=== PATIENT | male | born 1955 | race Two or more races ===

== ENCOUNTER → 2019-05-04 | Outpatient (CLI) | payer MEDICARE | END | disposition home or self-care (01) | LOC: RAD 17:10 | PROVIDERS: ATTEND Physician Assistant | DX: K57.32 Diverticulitis of large intestine without perforation or abscess without bleeding (principal); N40.0 Benign prostatic hyperplasia without lower urinary tract symptoms; R31.9 Hematuria, unspecified; M51.35 Other intervertebral disc degeneration, thoracolumbar region; M46.86 Other specified inflammatory spondylopathies, lumbar region; K40.90 Unilateral inguinal hernia, without obstruction or gangrene, not specified as recurrent; K42.9 Umbilical hernia without obstruction or gangrene; I70.0 Atherosclerosis of aorta; N28.1 Cyst of kidney, acquired | CPT/HCPCS: 74178 ==